=== PATIENT | female | born 1995 | race Hispanic/Latino ===

== ENCOUNTER 2024-12-02 03:43 | Emergency (ER) | payer OTHER ==
[~2024-12-02] VITALS: Ht 162.6 cm; Wt 94.3 kg
[2024-12-02] MEDS ORDERED: VENTOLIN HFA18 GM (03:52)
[2024-12-02] MEDS ORDERED: CONCERTA27 MG (03:52)
[2024-12-02] MEDS ORDERED: GUAIFENESIN/CODEINE 5 ML UDC PO ONE (04:00)
[2024-12-02] MEDS ORDERED: ONDANSETRON 4 MG TAB ODT SL ONE (04:00)
[2024-12-02 04:27] LABS: CORONAVIRUS COVID-19 AG NEGATIVE (NEGATIVE); INFLUENZA A AG NEGATIVE (NEGATIVE); INFLUENZA B AG NEGATIVE (NEGATIVE)
[2024-12-02] MEDS ORDERED: ONDANSETRON 4 MG HOME.PACK SL ONE (04:45)
[2024-12-02] MEDS ORDERED: GUAIFENESIN/CODEINE 60 ML HOME.PACK PO ONE (04:45)
[2024-12-02] MEDS ORDERED: ALBUTEROL SULFATE 8 GM HOME.PACK INH ONE (04:45)
[2024-12-02] MEDS ORDERED: methylPREDNISolone 4 MG HOME.PACK PO ONE (04:45)
[2024-12-02] MEDS ORDERED: INHALER, ASSIST DEVICES 1 EACH SPACER MISC ONE (04:45)
[2024-12-02 05:01] VITALS: BP 118/75
== END 2024-12-02 05:03 | disposition home or self-care (01) ==
LOC: ED 03:43
PROVIDERS: Family Medicine
DX: J40 Bronchitis, not specified as acute or chronic (principal); Z79.899 Other long term (current) drug therapy
CPT/HCPCS: 36415; 71045; 94640; 94664; 99285-25; A9270